=== PATIENT | female | born 1975 | race Caucasian/White ===

== ENCOUNTER → 2019-07-01 | Day surgery (SDC) | payer BC ==
--- NOTE | 2019-07-02 17:08 | PATH ---
Cytology Non-Gynecological Report Patient Name: ROMEO SARGENT Med. Rec. #: [id number] /Age/Gender: 1975 (Age: 43) / F Account: [id number] Location: RADIOLOGY INTER Taken: 07/01/2019 Received: 07/01/2019 Reported: 07/02/2019 Physicians: Saad Jay M.D. Specimen(s) Received THYROID FNA Clinical History Left lobe, 1.63 x 0.86 x 0.97 cm Final Diagnosis THYROID, LEFT LOBE, FINE NEEDLE ASPIRATION: SATISFACTORY FOR EVALUATION. BETHESDA III: HURTHLE CELL NODULE/ATYPIA OF UNDERTERMINED SIGNIFICANCE. FEW CLUSTERS OF ATYPICAL FOLLICULAR CELLS WITH MILD NUCLEAR ENLARGEMENT, ABUNDANT GRANULAR CYTOPLASM, VARIABLE PROMINENT NUCLEOLI AND SUBTLE GROOVES DISPERSED CLUSTERS AND FEW SHEETS IN A HEMORRHAGIC BACKGROUND WITH SCANT COLLOID. Comment: Suggest clinical/radiologic correlation and repeat sampling after an appropriate interval (3-6 months) with material for molecular studies (e.g.Thyroseq), as clinically warranted. Electronically Signed Koki Huerta M.D. Gross Description Received are eight direct smears, four of which are air-dried and Diff-Quik stained, and four of which are alcohol fixed and Pap stained. Also received is 20 ml of bloody formalin from which one cellblock is prepared.
== END | disposition home or self-care (01) ==
LOC: JRADIR 09:00
PROVIDERS: ATTEND Internal Medicine Endocrinology, Diabetes & Metabolism
PROC: 0G9G3ZX Drainage of Left Thyroid Gland Lobe, Percutaneous Approach, Diagnostic (ICD-10-PCS; principal; 2019-07-01)
PROC: BG44ZZZ Ultrasonography of Thyroid Gland (ICD-10-PCS; 2019-07-01)
DX: E04.1 Nontoxic single thyroid nodule (principal)
CPT/HCPCS: 76942; 88173; 88305-TC